=== PATIENT | female | born 1955 | race Caucasian/White ===

== ENCOUNTER 2019-10-26 08:55 | Emergency (ER) | payer OTHER ==
--- NOTE | 2019-10-26 10:48 | RAD ---
CHEST 1 VIEW: Date: 10/26/2019 HISTORY: Cough. COMPARISON: 12/15/2004. FINDINGS: Heart size is normal. The lungs are clear. IMPRESSION: No significant acute intrathoracic disease. Stable from prior exam. POS: RRE
[2019-10-27 14:48] LABS: SARS-CoV-2 MS2 Positive; SARS-CoV-2 N Gene Negative; SARS-CoV-2 S Gene Negative; SARS-CoV-2 by NAA Not Detected (NotDetected); SARS-CoV-2 orf1ab Negative
== END 2019-10-26 10:45 | disposition home or self-care (01) ==
LOC: MADERS 08:55
DX: B34.9 Viral infection, unspecified (principal); F17.210 Nicotine dependence, cigarettes, uncomplicated; Z20.828 Contact with and (suspected) exposure to other viral communicable diseases; Z79.899 Other long term (current) drug therapy
CPT/HCPCS: 71045; 87635; U0003

== ENCOUNTER 2023-01-12 13:21 | Emergency (ER) | payer BC, OTHER ==
[2023-01-12] MEDS ORDERED: Ipratropium/Albuterol 3 ML NEB ONE (13:40)
[2023-01-12] MEDS ORDERED: Aspirin 325 MG TAB ONE (13:41)
[2023-01-12 13:56] LABS: #Basophils 0.1 thou/uL (0.0-0.2); #Eosinphils 0.1 thou/uL (0.0-0.7); #Lymphocytes 2.5 thou/uL (1.20-3.40); #Monocytes 0.6 thou/uL (0.11-0.59); #Neutrophils 4.6 thou/uL (1.40-6.50); %Basophils 1.2 % (0.0-1.0); %Eosinophils 1.6 % (0.0-10.0); %Lymphocytes 31.6 % (21.0-51.0); %Monocytes 7.4 % (0.0-10.0); %Neutrophils 58.2 % (42.0-75.0); Hematocrit 42.3 % (36.0-47.0); Mean Corpuscular Volume 94.1 fl (78.0-98.0); Mean Platelet Volume 8.8 fL (7.4-10.4); Platelet Count 238 10x3/uL (130-400); RBC Distribution Width 13.1 % (11.5-14.5)
[2023-01-12 14:01] LABS: ALT (SGPT) 12 U/L (8-55); AST (SGOT) 18 U/L (5-34); Albumin 4.3 g/dL (3.4-4.8); Alkaline Phosphatase 63 U/L (40-110); Anion Gap 12 mmol/L (10-20); BUN (Urea Nitrogen) 18 mg/dL (9.8-20.1); Bilirubin, Total 0.3 mg/dL (0.2-1.2); Calc. Creatinine Clearance 0 mL/min (70-130); Calcium 9.1 mg/dL (7.8-10.44); Carbon Dioxide 25 mmol/L (23-31); Chloride 107 mmol/L (98-107); Estimated GFR 64; Globulin 2.6 g/dL (2.4-3.5); Glucose 111 mg/dL (80-115); Lipase 34 U/L (8-78); Magnesium 1.8 mg/dL (1.6-2.6); Potassium 3.8 mmol/L (3.5-5.1); Protein, Total 6.9 g/dL (5.8-8.1); Sodium 140 mmol/L (136-145)
[2023-01-12 14:04] LABS: Troponin I Less than 0.010 ng/mL (< 0.028)
[2023-01-12] MEDS ORDERED: Ketorolac Tromethamine 30 MG/ML VIAL ONE (14:18)
[2023-01-12] MEDS ORDERED: Sodium Chloride 0.9% 1,000 ML ONE (14:20)
[2023-01-12 16:46] LABS: Troponin I Less than 0.010 ng/mL (< 0.028)
== END 2023-01-12 17:01 | disposition home or self-care (01) ==
LOC: MADERS 13:21
DX: M94.0 Chondrocostal junction syndrome [Tietze] (principal); F17.210 Nicotine dependence, cigarettes, uncomplicated
CPT/HCPCS: 71045; 80053; 83690; 83735; 83880; 84484; 85025; 85379; 93005; 96374; J1885; J7050; J7620